=== PATIENT | female | born 1975 | race Caucasian/White ===

== ENCOUNTER 2016-04-25 11:48 | Emergency (ER) | END 2016-04-25 15:36 | disposition home or self-care (01) | DX: N76.0 Acute vaginitis (principal) | CPT/HCPCS: 81003; 87591; J0696; Z7610 ==

== ENCOUNTER 2016-05-06 12:10 | Emergency (ER) | payer MEDICAID ==
[~2016-05-06] VITALS: Wt 69.0 kg
[~2016-05-06 12:10] MED LIST: IRON45TA2 PO; METR500T PO; [UNRECOGNIZED DRUG - CODE]
[2016-05-06 12:57] LABS: URINE BLOOD (Dip) POC Negative (NEGATIVE)
[2016-05-06] MEDS ORDERED: IBUPROFEN 600 MG TAB PO ONE (13:00)
--- NOTE | 2016-05-06 13:39 | RADRPT ---
PROCEDURE: XR Chest. CLINICAL INDICATION: Fever TECHNIQUE: Chest AP portable. COMPARISON: No comparison available. FINDINGS: The mediastinal structures are unremarkable. The heart is normal in size and configuration. The pu lmonary vascularity is normal. The lung roberson are unremarkable. No consolidation is identified. The pleural spaces are unremarkable. The axial skeleton is unremarkable. IMPRESSION: No active intrathoracic disease. RPTAT: HG[facility] .Hal Hale MD, MD Date Time Electronically viewed and signed by .Hal Hale MD, on 05/06/2016 13:38 .B/
[2016-05-06] MEDS ORDERED: D-ME473S18 PO (14:09)
[2016-05-06] MEDS ORDERED: IBUP-1542 PO (14:09)
--- NOTE | 2016-05-06 14:11 | ERD ---
ER Documentation Chief Complaint Date/Time DATE: 05/06/16 TIME: 14:10 Chief Complaint fever cough and headache for the past few days. no n/v HPI This 41-year-old female presents with a 2-3 day history of body aches, frontal bitemporal headache, and cough. She has a fever triage. She denies urinary complaints, abdominal pain, diarrhea, neck stiffness, rashes. ROS All systems reviewed and are negative except as per history of present illness. Medications Home Meds Active Scripts Dextromethorphan Hb-Promethazine Hcl (Promethazine DM Syrup) 473 Ml Syrup, 5 ML PO Q6H Y for COUGH, #4 OZ Prov:LOGAN HAMM MD 05/06/16 Ibuprofen* (Motrin*) 600 Mg Tab, 600 MG PO Q6, #20 TAB Prov:LOGAN HAMM MD 05/06/16 Metronidazole* (Flagyl*) 500 Mg Tablet, 500 MG PO TID for 7 Days, TAB Prov:LACI MILLER PA-C 04/25/16 Reported Medications Iron,Carbonyl (IRON) 45 Mg Tablet, 45 MG PO DAILY 09/17/12 Vit 15/Iron Cb/Fa/Dss (Advanced Natalcare Tablet) 1 Tab Tablet 04/22/10 Allergies Allergies: Coded Allergies: No Known Drug Allergies (Verified Allergy, Mild, 04/25/16) PMhx/Soc History of Surgery: No Anesthesia Reaction: No Hx Neurological Disorder: No Hx Respiratory Disorders: No Hx Cardiac Disorders: No Hx Psychiatric Problems: No Hx Miscellaneous Medical Probl: No (NO KNOWN MEDICAL CONDITION) Hx Alcohol Use: No Hx Substance Use: No Hx Tobacco Use: No Smoking Status: Never smoker Physical Exam Vitals Vital Signs Date Time Temp Pulse Resp B/P Pulse Ox O2 Delivery O2 Flow Rate FiO2 05/06/16 12:12 101.5 100 20 146/84 99 Physical Exam Const: [] Alert, [id number]. Head: Atraumatic Eyes: Normal Conjunctiva ENT: Normal External Ears, Nose and Mouth. Neck: Full range of motion..~ No meningismus. Resp: Clear to auscultation bilaterally Cardio: Regular rate and rhythm, no murmurs Abd: Soft, non tender, non distended. Normal bowel sounds Skin: No petechiae or rashes Back: No midline or flank tenderness Ext: No cyanosis, or edema Neur: Awake and alert Psych: Normal Mood and Affect Results 24 hrs Laboratory Tests Test 05/06/16 12:59 Bedside Urine Blood Negative Bedside Urine Glucose (UA) Negative Bedside Urine Ketones (LAB) Negative Bedside Urine Leukocyte Esterase (L Negative Bedside Urine Nitrite (LAB) Negative Bedside Urine Protein (LAB) Negative Bedside Urine pH (LAB) 5.5 Current Medications Medications (Trade) Dose Ordered Sig/Daryl Route PRN Reason Start Time Stop Time Status Last Admin Dose Admin Ibuprofen (Motrin) 600 mg ONCE ONCE PO 05/06/16 13:00 05/06/16 13:01 05/06/16 13:01 Procedures/MDM Patient presents with URI symptoms and febrile illness and body aches, likely viral illness or influenza. Chest X-ray 1V Interpreted by me: Soft Tissue: No acute abnormalities Bones: No acute abnormalities Mediastinum/Cardiac Silhouette/Lungs: [No acute abnormalities]. Impression- normal 1 view chest x-ray Urine is negative for leukocytes, nitrites, glucose and blood. HCG is negative. Patient was well-appearing throughout the ED course. She will treated with ibuprofen and promethazine and further observation at home. The patient was stable with no new complaints during the ER course. Clinically, there is no current evidence to suggest meningitis, sepsis, acute abdomen, pneumonia, acute coronary syndrome, pulmonary embolism, or any other emergent condition appearing to require further evaluation or hospitalization. The patient should certainly return for any new or worsening symptoms per the aftercare instructions. They should otherwise follow-up with her primary care doctor for reevaluation this week. Departure Diagnosis: Primary Impression: Influenza-like symptoms Condition: Stable Patient Instructions: Influenza (Adult) Additional Instructions: probablamente un virus que dura 2-4 sloan. cheque otro lucero el proximo indy para mas simptomas- vomito, dolor, gabriela, problemas con respirando, o con moran doctor primario. LOGAN HAMM MD May 06, 2016 14:11
== END 2016-05-06 14:27 | disposition home or self-care (01) ==
LOC: FTE 12:10
DX: R51 Headache (principal); R50.9 Fever, unspecified; R05 Cough
CPT/HCPCS: 71010; 81003; Z7502; Z7610

== ENCOUNTER 2017-03-10 09:01 | Emergency (ER) | payer MEDICAID ==
[~2017-03-10] VITALS: Ht 157.5 cm; Wt 79.3 kg
[~2017-03-10 09:01] MED LIST changes: +D-ME473S18 PO; +IBUP-1542 PO
[2017-03-10 09:09] VITALS: Ht 157.5 cm; Wt 79.3 kg
[2017-03-10] MEDS ORDERED: GUAI1TBM PO (11:03)
[2017-03-10] MEDS ORDERED: IBUP-1542 PO (11:03)
--- NOTE | 2017-03-10 11:06 | ERD ---
ER Documentation Chief Complaint Chief Complaint COUGH X 1 WEEK WITH B/L EAR ACHE HPI This 42-year-old female presents with cough and earache for last week. She is here with her son with URI symptoms. There is no history of fevers, vomiting, chest pain or shortness of breath or abdominal pain. ROS All systems reviewed and are negative except as per history of present illness. Medications Home Meds Active Scripts Ibuprofen* (Motrin*) 600 Mg Tab, 600 MG PO Q6H Y for PAIN, #14 TAB Prov:LOGAN HAMM MD 03/10/17 Guaifenesin/Dextromethorphan (Mucinex Dm ER 1,200-60 mg Tab) 1 Each Tbmp.12hr, 1 EACH PO BID for 7 Days, #15 TAB Prov:LOGAN HAMM MD 03/10/17 Dextromethorphan Hb-Promethazine Hcl (Promethazine DM Syrup) 473 Ml Syrup, 5 ML PO Q6H Y for COUGH, #4 OZ Prov:LOGAN HAMM MD 05/06/16 Ibuprofen* (Motrin*) 600 Mg Tab, 600 MG PO Q6, #20 TAB Prov:LOGAN HAMM MD 05/06/16 Metronidazole* (Flagyl*) 500 Mg Tablet, 500 MG PO TID for 7 Days, TAB Prov:LACI MILLER PA-C 04/25/16 Reported Medications Iron,Carbonyl (IRON) 45 Mg Tablet, 45 MG PO DAILY 09/17/12 Vit 15/Iron Cb/Fa/Dss (Advanced Natalcare Tablet) 1 Tab Tablet 04/22/10 Allergies Allergies: Coded Allergies: No Known Drug Allergies (Verified Allergy, Mild, 04/25/16) PMhx/Soc Medical and Surgical Hx: pt denies Medical Hx, pt denies Surgical Hx History of Surgery: No Anesthesia Reaction: No Hx Neurological Disorder: No Hx Respiratory Disorders: No Hx Cardiac Disorders: No Hx Psychiatric Problems: No Hx Miscellaneous Medical Probl: No Hx Alcohol Use: No Hx Substance Use: No Hx Tobacco Use: No Smoking Status: Never smoker Physical Exam Vitals Vital Signs Date Time Temp Pulse Resp B/P Pulse Ox O2 Delivery O2 Flow Rate FiO2 03/10/17 09:09 100.1 92 18 123/73 98 Physical Exam Const: [] Alert, [id number]. Head: Atraumatic Eyes: Normal Conjunctiva ENT: Normal External Ears, Nose and Mouth. TMs and oropharynx normal. Neck: Full range of motion..~ No meningismus. Resp: Clear to auscultation bilaterally Cardio: Regular rate and rhythm, no murmurs Abd: Soft, non tender, non distended. Normal bowel sounds Skin: No petechiae or rashes Back: No midline or flank tenderness Ext: No cyanosis, or edema Neur: Awake and alert Psych: Normal Mood and Affect Procedures/MDM Patient presents with URI symptoms with essentially normal exam. There is no evidence of hypoxemia, respiratory distress or signs of chest pain, abdominal pain. She likely has a viral URI. She will be treated with Mucinex DM, ibuprofen, further observation at home, return precautions and primary care follow-up. The patient was stable with no new complaints during the ER course. Clinically, there is no current evidence to suggest meningitis, sepsis, acute abdomen, pneumonia, acute coronary syndrome, pulmonary embolism, or any other emergent condition appearing to require further evaluation or hospitalization. The patient should certainly return for any new or worsening symptoms per the aftercare instructions. They should otherwise follow-up with her primary care doctor for reevaluation this week. Departure Diagnosis: Primary Impression: Cough Condition: Stable Patient Instructions: Uri, Viral, No Abx (Adult) Additional Instructions: probablamente un virus que dura 2-4 sloan. cheque otro vez en el proximo indy para mas simptomas- vomito, dolor, gabriela, problemas con respirando, o con moran doctor primario. LOGAN HAMM MD Mar 10, 2017 11:06
== END 2017-03-10 11:43 | disposition home or self-care (01) ==
LOC: FTE 09:01
DX: R05 Cough (principal)
CPT/HCPCS: 99283

== ENCOUNTER 2018-04-20 08:12 | Emergency (ER) | payer MEDICAID ==
[~2018-04-20] VITALS: Wt 79.9 kg
[~2018-04-20 08:12] MED LIST changes: +GUAI1TBM12 PO
[2018-04-20 08:15] VITALS: BP 135/71; PULSE 71; RESP 20
[2018-04-20] MEDS ORDERED: D-ME473S2 PO (08:40)
[2018-04-20] MEDS ORDERED: IBUP-1542 PO (08:40)
[2018-04-20] MEDS ORDERED: AMOX1TAB10 PO (08:40)
--- NOTE | 2018-04-20 08:41 | ERD ---
ER Documentation Chief Complaint Chief Complaint flu x 2 weeks, cough,runny nose HPI 43-year-old female presents with cough and congestion for last 2 weeks. Over the last several days she has had pain in her face. She denies fevers. She has productive mucus. She denies any chest pain, shortness of breath, vomiting. ROS All systems reviewed and are negative except as per history of present illness. Medications Home Meds Active Scripts Ibuprofen* (Motrin*) 600 Mg Tab, 600 MG PO Q6, #15 TAB Prov:LOGAN HAMM MD 04/20/18 Dextromethorphan Hb-Promethazine Hcl* (Promethazine DM* Syrup) 473 Ml Syrup, 5 ML PO Q6 PRN for COUGH for 5 Days, ML Prov:LOGAN HAMM MD 04/20/18 Amoxicillin/Potassium Clav (Amox-Clav 875-125 mg Tablet) 875-125 mg Tab, 1 TAB PO BID for 10 Days, #14 TAB Prov:LOGAN HAMM MD 04/20/18 Ibuprofen* (Motrin*) 600 Mg Tab, 600 MG PO Q6H PRN for PAIN, #14 TAB Prov:LOGAN HAMM MD 03/10/17 Guaifenesin/Dextromethorphan (Mucinex Dm ER 1,200-60 mg Tab) 1 Each Tbmp.12hr, 1 EACH PO BID for 7 Days, #15 TAB Prov:LOGAN HAMM MD 03/10/17 Dextromethorphan Hb-Promethazine Hcl (Promethazine DM Syrup) 473 Ml Syrup, 5 ML PO Q6H PRN for COUGH, #4 OZ Prov:LOGAN HAMM MD 05/06/16 Ibuprofen* (Motrin*) 600 Mg Tab, 600 MG PO Q6, #20 TAB Prov:LOGAN HAMM MD 05/06/16 Metronidazole* (Flagyl*) 500 Mg Tablet, 500 MG PO TID for 7 Days, TAB Prov:LACI MILLER PA-C 04/25/16 Reported Medications Iron,Carbonyl (IRON) 45 Mg Tablet, 45 MG PO DAILY 09/17/12 Vit 15/Iron Cb/Fa/Dss (Advanced Natalcare Tablet) 1 Tab Tablet 04/22/10 Allergies Allergies: Coded Allergies: No Known Drug Allergies (Verified Allergy, Mild, 04/25/16) PMhx/Soc History of Surgery: No Anesthesia Reaction: No Hx Neurological Disorder: No Hx Respiratory Disorders: No Hx Cardiac Disorders: No Hx Psychiatric Problems: No Hx Miscellaneous Medical Probl: No Hx Alcohol Use: No Hx Substance Use: No Hx Tobacco Use: No FmHx Family History: No diabetes, No coronary disease, No other Physical Exam Vitals Vital Signs Date Temp Pulse Resp B/P (MAP) Pulse Ox O2 O2 Flow FiO2 Time Delivery Rate 04/20/18 97.8 71 20 135/71 99 08:15 (92) Physical Exam Const: No acute distress Head: Atraumatic Eyes: Normal Conjunctiva ENT: Normal External Ears, Nose and Mouth. TMs with decreased light reflex and clear fluid. Tender maxillary and frontal sinus. Nasal congestion. Post nasal drip. Neck: Full range of motion. No meningismus. Resp: Clear to auscultation bilaterally. Dry cough without rales, wheezing or retractions. Cardio: Regular rate and rhythm, no murmurs Abd: Soft, non tender, non distended. Normal bowel sounds Skin: No petechiae or rashes Back: No midline or flank tenderness Ext: No cyanosis, or edema Neur: Awake and alert Psych: Normal Mood and Affect Procedures/MDM She presents with URI symptoms for 3 weeks which are worsening with signs of sinusitis. Given the duration will treat with Augmentin, promethazine, ibuprofen, primary care follow-up and return precautions as well as Flonase. The patient was stable with no new complaints during the ER course. Clinically, there is no current evidence to suggest meningitis, sepsis, acute abdomen, pneumonia, stroke, acute coronary syndrome, pulmonary embolism, aortic dissection or any other emergent condition appearing to require further evaluation or hospitalization. Patient counseled regarding my diagnostic impression and care plan. Prior to discharge all questions answered. Pt agrees with treatment plan and understands strict return precautions. Pt is instructed to follow up with primary care provider within 24-48 hours. Precautionary instructions provided including instructions to return to the ER if not improving or for any worsening or changing symptoms or concerns. Disclaimer: Inadvertent spelling and grammatical errors are likely due to EHR/dictation software use and do not reflect on the overall quality of patient care. Also, please note that the electronic time recorded on this note does not necessarily reflect the actual time of the patient encounter. Departure Diagnosis: Primary Impression: Sinusitis Sinusitis location: frontal Chronicity: acute Recurrence: not specified as recurrent Qualified Codes: J01.10 - Acute frontal sinusitis, unspecified Additional Impression: Upper respiratory infection URI type: unspecified URI Qualified Codes: J06.9 - Acute upper respiratory infection, unspecified Condition: Stable Patient Instructions: Sinusitis, Abx Tx Additional Instructions: Cheque otro vez con moran doctor primario en el proximo sloan or regresa para mas o nueva simptomas. LOGAN HAMM MD Apr 20, 2018 08:41
== END 2018-04-20 09:05 | disposition home or self-care (01) ==
LOC: FTE 08:12
DX: J01.10 Acute frontal sinusitis, unspecified (principal); J06.9 Acute upper respiratory infection, unspecified
CPT/HCPCS: 99283

== ENCOUNTER 2018-08-20 13:40 | Emergency (ER) | payer MEDICAID ==
[~2018-08-20] VITALS: Wt 80.3 kg
[~2018-08-20 13:40] MED LIST changes: +AMOX1TAB10 PO; +D-ME473S2 PO
[2018-08-20] MEDS ORDERED: AZITHROMYCIN 500 MG TAB PO ONE (16:30)
[2018-08-20] MEDS ORDERED: CEFTRIAXONE 250 MG INJ IM ONE (16:30)
[2018-08-20] MEDS ORDERED: METR70GE15 VAG (16:32)
[2018-08-20] MEDS ORDERED: IBUP-1542 PO (16:32)
--- NOTE | 2018-08-20 16:35 | ERD ---
ER Documentation Chief Complaint Chief Complaint DYSURIA X 6 DAYS HPI 43-year-old female presents with approximately 1 week history of foul-smelling vaginal discharge although there is none of discharge to state where there is green, yellow, white. She denies mild suprapubic pain. She also has dysuria. She denies fevers, vomiting, localized right or left abdominal pain. ROS All systems reviewed and are negative except as per history of present illness. Medications Home Meds Active Scripts Ibuprofen* (Motrin*) 600 Mg Tab, 600 MG PO Q6, #15 TAB Prov:LOGAN HAMM MD 08/20/18 Metronidazole* (Metrogel* Vaginal) 0.75% -70 Gram Gel.w.appl, 1 APPFUL VAG BID for 7 Days, TUB Prov:LOGAN HAMM MD 08/20/18 Ibuprofen* (Motrin*) 600 Mg Tab, 600 MG PO Q6, #15 TAB Prov:LOGAN HAMM MD 04/20/18 Dextromethorphan Hb-Promethazine Hcl* (Promethazine DM* Syrup) 473 Ml Syrup, 5 ML PO Q6 PRN for COUGH for 5 Days, ML Prov:LOGAN HAMM MD 04/20/18 Amoxicillin/Potassium Clav (Amox-Clav 875-125 mg Tablet) 875-125 mg Tab, 1 TAB PO BID for 10 Days, #14 TAB Prov:LOGAN HAMM MD 04/20/18 Ibuprofen* (Motrin*) 600 Mg Tab, 600 MG PO Q6H PRN for PAIN, #14 TAB Prov:LOGAN HAMM MD 03/10/17 Guaifenesin/Dextromethorphan (Mucinex Dm ER 1,200-60 mg Tab) 1 Each Tbmp.12hr, 1 EACH PO BID for 7 Days, #15 TAB Prov:LOGAN HAMM MD 03/10/17 Dextromethorphan Hb-Promethazine Hcl (Promethazine DM Syrup) 473 Ml Syrup, 5 ML PO Q6H PRN for COUGH, #4 OZ Prov:LOGAN HAMM MD 05/06/16 Ibuprofen* (Motrin*) 600 Mg Tab, 600 MG PO Q6, #20 TAB Prov:LOGAN HAMM MD 05/06/16 Metronidazole* (Flagyl*) 500 Mg Tablet, 500 MG PO TID for 7 Days, TAB Prov:LACI MILLERAsh GARCIA 04/25/16 Reported Medications Iron,Carbonyl (IRON) 45 Mg Tablet, 45 MG PO DAILY 09/17/12 Vit 15/Iron Cb/Fa/Dss (Advanced Natalcare Tablet) 1 Tab Tablet 04/22/10 Allergies Allergies: Coded Allergies: No Known Drug Allergies (Verified Allergy, Mild, 04/25/16) PMhx/Soc Medical and Surgical Hx: pt denies Surgical Hx History of Surgery: Yes (c section x 2 ) Anesthesia Reaction: No Hx Neurological Disorder: No Hx Respiratory Disorders: No Hx Cardiac Disorders: No Hx Psychiatric Problems: No Hx Miscellaneous Medical Probl: No Hx Alcohol Use: No Hx Substance Use: No Hx Tobacco Use: No Smoking Status: Never smoker FmHx Family History: No diabetes, No coronary disease, No other Physical Exam Vitals Vital Signs Date Temp Pulse Resp B/P (MAP) Pulse Ox O2 O2 Flow FiO2 Time Delivery Rate 08/20/18 99.2 77 18 122/59 99 13:45 (80) Physical Exam Const: No acute distress Head: Atraumatic Eyes: Normal Conjunctiva ENT: Normal External Ears, Nose and Mouth. Neck: Full range of motion. No meningismus. Resp: Clear to auscultation bilaterally Cardio: Regular rate and rhythm, no murmurs Abd: Soft, non tender, non distended. Normal bowel sounds. Pelvic exam with estate tax examiner shows mild cervical motion tenderness. No adnexal masses or tende rness. No tenderness at McBurney's point no rebound or masses. No significant discharge or external genital lesions. Skin: No petechiae or rashes Back: No midline or flank tenderness Ext: No cyanosis, or edema Neur: Awake and alert Psych: Normal Mood and Affect Results 24 hrs Laboratory Tests Test 08/20/18 15:54 08/20/18 15:57 Urine Color STRAW Urine Clarity SLIGHTLY CLOUDY Urine pH 6.0 Urine Specific [place] 1.004 Urine Ketones NEGATIVE mg/dL Urine Nitrite NEGATIVE mg/dL Urine Bilirubin NEGATIVE mg/dL Urine Urobilinogen NEGATIVE mg/dL Urine Leukocyte Esterase NEGATIVE Arabella/ul Urine Microscopic RBC 2 /HPF Urine Microscopic WBC 1 /HPF Urine Squamous Epithelial Cells MODERATE /HPF Urine Bacteria FEW /HPF Urine Hemoglobin NEGATIVE mg/dL Urine Glucose NEGATIVE mg/dL Urine Total Protein NEGATIVE mg/dl POC Beta HCG, Qualitative NEGATIVE Current Medications Medications Dose Sig/Daryl Start Time Status Last (Trade) Ordered Route PRN Stop Time Admin Dose Reason Admin Ceftriaxone 250 mg ONCE ONCE 08/20/18 UNV Sodium IM 16:30 (Rocephin) 08/20/18 16:31 1,000 mg ONCE ONCE 08/20/18 UNV Azithromycin PO 16:30 (Zithromax) 08/20/18 16:31 Procedures/MDM Urine shows no significant signs of infection. hCG is negative. Presents with dysuria, foul-smelling vaginal discharge and suprapubic pain. She does have cervical motion tenderness and will be treated empirically with Zithromax, and Rocephin. Urine was sent for gonorrhea chlamydia. Patient denies recent symptoms to suggest tubo-ovarian abscess, appendicitis, acute abdomen. She will be discharged home with ibuprofen, MetroGel, recommendations for return precautions in the next 1 to 2 days for fevers, vomiting, localized abdominal pain, new worsening symptoms with primary doctor. The patient was stable with no new complaints during the ER course. Clinically, there is no current evidence to suggest meningitis, sepsis, acute abdomen, pneumonia, stroke, acute coronary syndrome, pulmonary embolism, aortic dissection or any other emergent condition appearing to require further evaluation or hospitalization. Patient counseled regarding my diagnostic impression and care plan. Prior to discharge all questions answered. Pt agrees with treatment plan and understands strict return precautions. Pt is instructed to follow up with primary care provider within 24-48 hours. Precautionary instructions provided including instructions to return to the ER if not improving or for any worsening or changing symptoms or concerns. Disclaimer: Inadvertent spelling and grammatical errors are likely due to EHR/dictation software use and do not reflect on the overall quality of patient care. Also, please note that the electronic time recorded on this note does not necessarily reflect the actual time of the patient encounter. Departure Diagnosis: Primary Impression: Pelvic pain Additional Impression: Dysuria Condition: Stable Patient Instructions: Dysuria, Pelvic Pain, Unknown Cause Additional Instructions: orina normal. tenia tratamiento para infeccion. Examines normal hoy. Cheque otro vez con moran doctor primario en el proximo sloan or regresa para mas o nueva simptomas. LOGAN HAMM MD August 20, 2018 16:35
[2018-08-20 17:11] VITALS: BP 101/56; PULSE 65; RESP 17
== END 2018-08-20 17:15 | disposition home or self-care (01) ==
LOC: FTE 13:40
DX: R30.0 Dysuria (principal); R10.2 Pelvic and perineal pain
CPT/HCPCS: 81001; 81025; 96372; J0696; Z7502; Z7610; 81003